=== PATIENT | female | born 2000 | race Caucasian/White ===

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

== ENCOUNTER 2018-01-10 12:11 | Outpatient (CLI) | payer OTHER ==
[2018-01-10 12:40] LABS: BILIRUBIN,URINE NEGATIVE (NEGATIVE); GLUCOSE, URINE (UA) NEGATIVE (NEGATIVE); KETONES,URINE (UA) NEGATIVE (NEGATIVE); LEUKOCYTE ESTERASE, URINE NEGATIVE (NEGATIVE); NITRITE,URINE NEGATIVE (NEGATIVE); OCCULT BLOOD,URINE NEGATIVE (NEGATIVE); PROTEIN,URINE NEGATIVE (NEGATIVE); UROBILINOGEN,URINE 0.2 (NORMAL) E.U./dL (NORMAL)
[2018-01-10 12:41] LABS: CLARITY,URINE CLEAR (CLEAR)
[2018-01-10 13:31] VITALS: BP 100/75
[2018-01-10 13:47] LABS: RUPTURE OF MEMBRANES PLUS NEGATIVE (NEGATIVE)
== END 2018-01-10 14:20 | disposition home or self-care (01) ==
LOC: WFO 12:11 → FBP 12:14 → WFO 14:20
PROVIDERS: ATTEND Obstetrics & Gynecology
DX: Z34.03 Encounter for supervision of normal first pregnancy, third trimester (principal)
CPT/HCPCS: 81001; 81003; 84112; 87086; 87797; 99213

== ENCOUNTER 2018-02-04 14:46 | Outpatient (CLI) | payer OTHER, MEDICAID ==
[2018-02-04 15:30] VITALS: BP 129/72
== END 2018-02-04 16:15 | disposition home or self-care (01) ==
LOC: WFO 14:46 → FBP 14:47 → WFO 16:15
PROVIDERS: ATTEND Obstetrics & Gynecology
DX: O36.8130 Decreased fetal movements, third trimester, not applicable or unspecified (principal); Z3A.38 38 weeks gestation of pregnancy
CPT/HCPCS: 99213

== ENCOUNTER 2018-02-08 12:32 | Emergency (ER) | payer OTHER, MEDICAID ==
--- NOTE | 2018-02-08 12:51 | ED Physician Documentation ---
History of Present Illness - Stated complaint Stated Complaint: BACK PX/VOMITING - History obtained from History obtained from: Patient - History of Present Illness Timing: Today Pain level max: 8 Pain level now: 3 Improved by: nothing Worsened by: nothing - Additonal information Additional information: Patient is a 39 week , , presents with low back pain, pelvic and abdominal cramping. States no leakage of fluid. Review of Systems Ten Systems: 10 systems reviewed and negative Constitutional: denies: Fever, Chills Ears: denies: Ear pain Nose: denies: Rhinorrhea / runny nose, Congestion Throat: denies: Sore throat Cardiac: denies: Chest pain / pressure Respiratory: denies: Cough GI: reports: Nausea, Vomiting. denies: Diarrhea : denies: Dysuria, Frequency, Hesitancy Skin: denies: Rash Musculoskeletal: denies: Neck pain, Back pain Neurologic: denies: Headache PD PAST MEDICAL HISTORY - Past Medical History Past Medical History: No - Past Surgical History Past Surgical History: Yes General: Appendectomy HEENT: Tonsil/Adenoidectomy - Present Medications Home Medications: Ambulatory Orders Medication Instructions Recorded Confirmed No Known Home Medications [No 07/11/17 07/11/17 Known Home Medications] - Allergies Allergies/Adverse Reactions: Allergies Allergy/AdvReac Type Severity Reaction Status Date / Time No Known Drug Allergies Allergy Verified 07/11/17 21:30 - Social History Does the pt smoke?: No Smoking Status: Never smoker Does the pt drink ETOH?: No Does the pt have substance abuse?: No - Immunizations Immunizations are current?: Yes - POLST Patient has POLST: No PD ED PE NORMAL - Vitals Vital signs reviewed: Yes - General General: Alert and oriented X 3, No acute distress - HEENT HEENT: Moist mucous membranes - Neck Neck: Supple, no meningeal sign - Cardiac Cardiac: RRR - Respiratory Respiratory: No respiratory distress, Clear bilaterally - Abdomen Abdomen: Soft, Non tender, Non distended - Derm Derm: Warm and dry - Extremities Extremities: Other (1+ B LE edema) - Neuro Neuro: Alert and oriented X 3 - Psych Psych: Normal mood, Normal affect Results - Vitals Vitals: Vital Signs - 24 hr 02/08/18 12:46 Temperature 36.8 C Heart Rate 94 Respiratory 18 Rate Blood Pressure 138/75 H O2 Saturation 99 Oxygen O2 Source Room air PD MEDICAL DECISION MAKING - ED course Complexity details: considered differential, d/w patient, d/w it architecture consultant (1250 - D/w Dr. Wong (OB) who accepts her directly to OB. ) ED course: Concern for active labor. Contacted OB on-call Dr. Wong who accepts immediately to the OB service. She transported to OB by ANSHUL Joseph for further care. This document was made in part using voice recognition software. While efforts are made to proofread this document, sound alike and grammatical errors may occur. Departure - Departure Disposition: 01 Home, Self Care Clinical Impression: Abdominal pain affecting , Active labor at term Condition: Stable Discharge Date/Time: 02/08/18 13:00
[2018-02-08 12:52] VITALS: BP 138/75
== END 2018-02-08 13:00 | disposition home or self-care (01) ==
LOC: ED 12:32
DX: O26.893 Other specified pregnancy related conditions, third trimester (principal); R10.9 Unspecified abdominal pain; M54.5 Low back pain; Z3A.39 39 weeks gestation of pregnancy
CPT/HCPCS: 99282; 99283

== ENCOUNTER 2018-02-08 12:55 | Inpatient (IN) | payer OTHER, MEDICAID ==
[2018-02-08] MEDS ORDERED: miSOPROStol 200 MCG TABLET ONE (14:04)
[2018-02-08] MEDS ORDERED: LIDOCAINE 1% 50 ML MDV ONE (14:04)
[2018-02-08] MEDS ORDERED: TERBUTALINE 1 MG/ML VIAL SUBQ ONE (14:04)
[2018-02-08] MEDS ORDERED: MINERAL OIL LIGHT 10 ML MC ONE (14:04)
[2018-02-08] MEDS ORDERED: SODIUM CHLORIDE FLUSH 0.9% 10 ML SYRINGE ONE (14:05)
[2018-02-08] MEDS ORDERED: OXYTOCIN 10 UNIT/ML VIAL ONE (14:05)
[2018-02-08] MEDS ORDERED: OXYTOCIN/SODIUM CHLORIDE 500 ML IV ONE (14:05)
[2018-02-08] MEDS ORDERED: LACTATED RINGERS 1,000 ML IV ONE (14:05)
[2018-02-08] MEDS ORDERED: fentaNYL 100 MCG/2 ML VIAL ONE (14:32)
[2018-02-08] MEDS ORDERED: fentaNYL 250 MCG/5 ML VIAL ONE ×2 (14:45→15:22)
[2018-02-08] MEDS ORDERED: SODIUM CHLORIDE 0.9% 250 ML IV ONE ×3 (14:45→14:46)
[2018-02-08] MEDS ORDERED: BUPIVACAINE 0.75% MPF 30 ML VIAL ONE ×2 (14:45→15:22)
[2018-02-08] MEDS ORDERED: fentaNYL 100 MCG/2 ML VIAL IVP PRN (14:48)
[2018-02-08] MEDS ORDERED: SODIUM CHLORIDE FLUSH 0.9% 10 ML SYRINGE IVP PRN (14:48)
[2018-02-08] MEDS ORDERED: LACTATED RINGERS 1,000 ML IV SCH ×2 (15:00→22:00)
[2018-02-08 15:05] LABS: BASOPHILS # (AUTO) 0.1 10^3/uL (0.0-0.1); BASOPHILS % (AUTO) 0.2 %; HGB - HEMOGLOBIN 10.2 g/dL (12.0-16.0); LYMPHOCYTES # (AUTO) 1.9 10^3/uL (1.5-3.5); LYMPHOCYTES % (AUTO) 7.2 %; MEAN CORPUSCULAR HEMOGLOBIN 25.5 pg (27.0-31.0); MEAN CORPUSCULAR HGB CONC 32.3 g/dL (32.0-36.0); MEAN CORPUSCULAR VOLUME 78.8 fL (81.0-99.0); MONOCYTES # (AUTO) 1.1 10^3/uL (0.0-1.0); MONOCYTES % (AUTO) 4.3 %; NEUTROPHILS # (AUTO) 23.3 10^3/uL (1.5-6.6); NEUTROPHILS % (AUTO) 88.3 %; PLT - PLATELET COUNT 269 10^3/uL (130-450); RED CELL DISTRIBUTION WIDTH 15.9 % (12.0-15.0); WHITE BLOOD COUNT 26.4 x10^3/uL (4.8-10.8)
--- NOTE | 2018-02-08 15:42 | HISTORY & PHYSICAL EXAMINATION ---
DATE OF SERVICE: 02/08/2018 Physician: Fuad Wong MD PATIENT IDENTIFICATION: The patient is a 17-year-old, G1, P0, female whose last menstrual period was 03 May by patient history. She has an EDC of January,. This was calculated utilizing last menstrual period. Her gestational age is 38.4 weeks. CHIEF COMPLAINT: Contraction. HISTORY OF PRESENT ILLNESS: The patient states she developed contractions roughly on Tuesday. She presented to labor and delivery at that time and was noted to have 2 cm, 50% effaced. She was not kept at that time. She presented again on Tuesday for contractions at which time she was felt to be 2-3 cm and 50% effaced. Tuesday she was again checked, 2-3, 50%, and Tuesday once again 3 cm, 50% effaced. This afternoon the contractions become markedly more painful and she was brought to our labor and delivery unit by her stepfather. At this point, she was noted to be 5 cm, 100% effaced and 0 station, vertex presentation, intact. For this reason, she has been kept here for labor and delivery. Records have been obtained from [facility]. Her OB care started at roughly 9 weeks EGA. She has had multiple visits throughout her entire care. Her course has been complicated with a mastitis which was treated with antibiotics. She also had some contractions and was seen here earlier in her . The patient's labs show her to be GC chlamydia negative. Her blood type is noted to be A positive. Her HIV is nonreactive. Hepatitis B is negative, as well as the remainder of her hepatitis panel. She is rubella positive. Her GBS was noted to be negative. One-hour glucose tolerance test was 118. PAST MEDICAL HISTORY: She has a history of having chlamydial infection in the past. The patient denies a hypertensive, diabetic or cardiac disease. PAST SURGICAL HISTORY: Positive for an appendectomy at a younger age. CURRENT MEDICATIONS: vitamins. She has had a course of Keflex during her for mastitis. She had a single episode of nifedipine. HABITS: The patient denies use of alcohol, tobacco or street addictive drugs. ALLERGIES: NONE KNOWN. SOCIAL HISTORY: The patient is nonmarried. She is the dependent daughter of an active duty [place] person. She has a high school education. FAMILY HISTORY: Positive for a father who has had a myocardial infarction. PHYSICAL EXAMINATION GENERAL: The patient is a well-developed, well-nourished white female. She is in moderate to severe amount of distress initially. HEENT: Pupils equal, round. Extraocular muscles are intact. HEART: Regular rate and rhythm without murmurs. LUNGS: Lung martines are clear without rales or wheezes. BACK: No spinal or CVA tenderness. UTERUS: Gravid, nontender. CERVIX: Her cervical examination shows to be 5 cm, 100% effaced, 0 station, vertex. EXTREMITIES: DTRs are noted to be negative. There is no evidence of clonus or calf tenderness. IMPRESSION 1. A 17-year-old primigravida who is 38 and 4 weeks. 2. Active labor. 3. A patient of [facility] with adequate obstetrical care. PLAN: We will admit the patient, administer epidural and work toward delivery. These goals have been explained to the patient. At this particular point she plans to stay here. TD: 02/08/2018 15:41
[2018-02-08 16:01] LABS: DIFFERENTIAL COMMENT MANUAL=AUTO DIFF; PLATELET ESTIMATE, MANUAL NORMAL (130-450,000) (NORMAL); PLATELET MORPHOLOGY NORMAL APPEARANCE (NORMAL)
[2018-02-08] MEDS: OXYTOCIN/SODIUM CHLORIDE 500 ML IV SCH ×2 (16:34→21:13)
--- NOTE | 2018-02-08 16:36 | PROVIDER PROGRESS NOTE ---
Labor Progress Note - Uterine Monitoring Uterine Monitoring Mode: positive: External toco Contraction Frequency (min/apart): 5min Contraction Intensity: positive: Mild to moderate Uterine Resting Tone: positive: Soft - Monitoring Monitor Mode: positive: External ultrasound Heart Rate Baseline: 137 Heart Rate Variability: positive: Moderate (6-25 bmp) Accelerations: positive: Present, 15x15 Decelerations: positive: None Strip Review: positive: Category I - Vaginal Exam Dilation (in cm): 6 Effacement (%): 100% Station: -3, -1 Cervical Position: Midposition - Labor Progress Note Labor Progress Note/Additional Text: Pt is very nervous. has not had any rest past 3 days. Contractions mild will start pitocin.
[2018-02-08] MEDS ORDERED: SODIUM CHLORIDE FLUSH 0.9% 10 ML SYRINGE IVP SCH (17:00)
--- NOTE | 2018-02-08 20:38 | PROVIDER PROGRESS NOTE ---
Labor Progress Note - Uterine Monitoring Uterine Monitoring Mode: positive: External toco Contraction Frequency (min/apart): 4 Contraction Intensity: positive: Moderate to strong Uterine Resting Tone: positive: Soft - Monitoring Monitor Mode: positive: External ultrasound Heart Rate Baseline: 130 Heart Rate Variability: positive: Moderate (6-25 bmp) Accelerations: positive: Present, 10x10 (=/32 wks) Decelerations: positive: None - Vaginal Exam Dilation (in cm): 10 Effacement (%): 100 Station: 2, 3 - Labor Progress Note Labor Progress Note/Additional Text: Progressing. Pt fatigued due to lack of sleep. pushing well. pit to 3 units
[2018-02-08] MEDS ORDERED: HYDROCORTISONE/PRAMOXINE 10 GM PR PRN (21:41)
[2018-02-08] MEDS ORDERED: HYDROCORTISONE 1% CREAM 28 GM TUBE PR PRN (21:41)
[2018-02-08] MEDS ORDERED: oxyCODONE 5 MG TABLET PO PRN (21:41)
[2018-02-08] MEDS ORDERED: diphenhydrAMINE 25 MG CAPSULE PO PRN (21:41)
[2018-02-08] MEDS ORDERED: WITCH HAZEL/GLYCERIN 1 EACH MED..PAD TOP PRN (21:41)
[2018-02-08] MEDS ORDERED: ONDANSETRON 4 MG/2 ML VIAL IVP PRN (21:41)
[2018-02-08] MEDS ORDERED: OXYTOCIN/SODIUM CHLORIDE 250 ML IV ONE (21:41)
--- NOTE | 2018-02-08 21:47 | DELIVERY NOTE ---
Delivery Note - Labor Labor: positive: Spontaneous (pt has had contractions since tuesday with several visits to L&D), Augmented by ARM, Augmented by oxytocin - Infant Delivery Method Infant Delivery Method: positive: Spontaneous vaginal delivery - Presentation Presentation: positive: Vertex, DIEGO - right occiput anterior - Nuchal Cord Nuchal Cord: positive: None - Anesthetic Anesthetic Type: Anesthetic: positive: Lidocaine - 1% plain Volume: positive: Other (10 ml) - Amniotic Fluid Description Amniotic Fluid Description: positive: Clear - Episiotomy Type Episiotomy Type: positive: None - Laceration Laceration: positive: 1st degree, Perineal - Suture Suture Type: positive: Vicryl Suture Size: positive: 3-0 - Delivery Outcome Delivery Outcome: positive: Livebirth (male at 2103 9lb 3.5 oz, Apgars 8/9) - Marcellus: positive: Placed in direct skin contact with mother, Bulb syringe, Stimulated, Warmed sex: positive: Male - Cord Cord: positive: 3 vessels - Placenta Placenta: positive: Intact (placenta at 2113.), Spontaneous
[2018-02-08] MEDS: IBUPROFEN 800 MG TABLET PO SCH (22:33)
[2018-02-09] MEDS: OXYTOCIN/SODIUM CHLORIDE 500 ML IV SCH (04:25)
[2018-02-09 05:55] LABS: BASOPHILS # (AUTO) 0.1 10^3/uL (0.0-0.1); BASOPHILS % (AUTO) 0.3 %; HGB - HEMOGLOBIN 8.5 g/dL (12.0-16.0); LYMPHOCYTES # (AUTO) 2.6 10^3/uL (1.5-3.5); LYMPHOCYTES % (AUTO) 10.7 %; MEAN CORPUSCULAR HEMOGLOBIN 24.7 pg (27.0-31.0); MEAN CORPUSCULAR VOLUME 79.9 fL (81.0-99.0); MEAN PLATELET VOLUME 8.3 fL (7.9-10.8); MONOCYTES # (AUTO) 2.2 10^3/uL (0.0-1.0); MONOCYTES % (AUTO) 8.9 %; NEUTROPHILS # (AUTO) 19.8 10^3/uL (1.5-6.6); NEUTROPHILS % (AUTO) 80.1 %; PLT - PLATELET COUNT 271 10^3/uL (130-450); RED BLOOD COUNT 3.43 10^6/uL (4.20-5.40); WHITE BLOOD COUNT 24.7 x10^3/uL (4.8-10.8)
[2018-02-09] MEDS: IBUPROFEN 800 MG TABLET PO SCH ×3 (06:17→18:59)
[2018-02-09 06:28] LABS: PLATELET ESTIMATE, MANUAL NORMAL (130-450,000) (NORMAL); PLATELET MORPHOLOGY NORMAL APPEARANCE (NORMAL)
--- NOTE | 2018-02-09 11:39 | ANESTHESIA POST OP EVALUATION ---
Anesthesia Post Eval - Post Anesthesia Eval CV Function Including HR & BP: positive: Stable (Patient received labor epidural yesterday, states labor pain adequately controlled. Overall was satisfied with our care. I told her some mild back discomfort is common and may persist for a couple weeks. I told her to call if she develops a headache as we can treat it.) Pain Control: positive: Adequate Nausea & Vomiting: positive: Negative Mental Status: positive: Appropriate Anesthesia Complications: positive: None
[2018-02-09] MEDS: DOCUSATE SODIUM 100 MG CAPSULE PO SCH ×2 (11:56→21:18)
[2018-02-09] MEDS: ACETAMINOPHEN 325 MG TABLET PO SCH ×2 (13:35→21:00)
[2018-02-10] MEDS: IBUPROFEN 800 MG TABLET PO SCH ×2 (00:53→06:44)
--- NOTE | 2018-02-10 08:18 | PROVIDER PROGRESS NOTE ---
Subjective - Prog Note Date Prog Note Date: 02/09/18 Prog Note Time: 08:45 - Subjective Pt reports feeling: Improved (Pt is doing well. breast feeding. locia clearing. Pain 10/12) Objective - Vital Signs/Intake & Output Reviewed Vital Signs: Yes Vital Signs: Vital Signs x48h Temp Pulse Resp BP BP Pulse Ox 02/10/18 08:00 36.6 C 77 16 116/74 100 02/10/18 04:58 36.8 C 74 20 116/64 99 Intake & Output: Intake & Output 02/07/18 02/08/18 02/09/18 02/10/18 23:59 23:59 23:59 23:59 Intake Total 1614.167 Output Total 700 300 Balance 914.167 -300 - Objective General Appearance: positive: No acute distress, Alert Respiratory: positive: Chest non-tender Cardiovascular: positive: Regular rate & rhythm Abdomen: positive: Non-tender Extremities: negative: Calf tenderness, Myrna's sign/cords - Lab Results Fish Bones: 02/09/18 05:49 Assessment/Plan - Problem List (1) Anemia Impression: Pt is post locia resolving. Qualifiers: Anemia type: other cause Other causes of anemia: acute posthemorrhagic Qualified Code(s): D62 - Acute posthemorrhagic anemia
--- NOTE | 2018-02-10 08:23 | PROVIDER PROGRESS NOTE ---
Subjective - Prog Note Date Prog Note Date: 02/10/18 Prog Note Time: 08:21 - Subjective Pt reports feeling: Improved (Pt is teary eyed. spouce is at work. Misses him. Pain 0/10. locia improving. sandhya tachy cardia or light headedness.) Objective - Vital Signs/Intake & Output Reviewed Vital Signs: Yes Vital Signs: Vital Signs x48h Temp Pulse Resp BP BP Pulse Ox 02/10/18 08:00 36.6 C 77 16 116/74 100 02/10/18 04:58 36.8 C 74 20 116/64 99 Intake & Output: Intake & Output 02/07/18 02/08/18 02/09/18 02/10/18 23:59 23:59 23:59 23:59 Intake Total 1614.167 Output Total 700 300 Balance 914.167 -300 - Objective General Appearance: positive: No acute distress (Flat affect) Respiratory: positive: Chest non-tender, No respiratory distress Cardiovascular: positive: Regular rate & rhythm, No murmur, No gallop Abdomen: positive: Non-tender, Mass (U-2) Extremities: negative: Calf tenderness, Myrna's sign/cords - Lab Results Fish Bones: 02/09/18 05:49 Assessment/Plan - Problem List (1) Anemia Impression: Anemia will place on Iron and stool softener Qualifiers: Anemia type: other cause Other causes of anemia: acute posthemorrhagic Qualified Code(s): D62 - Acute posthemorrhagic anemia (2) (spontaneous vaginal delivery) Impression: Pt si doing well Discussed breast feeding, masitis Contraception. recommended Mirena Discharge medication Motrin 800 mg Iron 325 mg Colace 100 mg RTC 2 and 6 weeks
--- NOTE | 2018-02-10 08:53 | PROVIDER PROGRESS NOTE ---
Subjective - Prog Note Date Prog Note Date: 02/10/18 Prog Note Time: 08:50 - Subjective Pt reports feeling: Improved Objective - Vital Signs/Intake & Output Vital Signs: Vital Signs x48h Temp Pulse Resp BP BP Pulse Ox 02/10/18 08:00 36.6 C 77 16 116/74 100 02/10/18 04:58 36.8 C 74 20 116/64 99 Intake & Output: Intake & Output 02/07/18 02/08/18 02/09/18 02/10/18 23:59 23:59 23:59 23:59 Intake Total 1614.167 Output Total 700 300 Balance 914.167 -300 - Lab Results Fish Bones: 02/09/18 05:49 Assessment/Plan - Problem List (1) Anemia Qualifiers: Anemia type: other cause Other causes of anemia: acute posthemorrhagic Qualified Code(s): D62 - Acute posthemorrhagic anemia
--- NOTE | 2018-02-10 09:11 | Discharge Plan ---
Discharge Plan Disposition: Home, Self Care Diet: Regular Shower Restrictions: No Driving Restrictions: No No Smoking: If you smoke, Please STOP! Call for help. Follow-up with: Fuad Wong MD [Provider Admit Priv/Credential] -
[2018-02-10] MEDS: DOCUSATE SODIUM 100 MG CAPSULE PO SCH (09:17)
[2018-02-10 16:06] VITALS: BP 118/71
--- NOTE | 2018-02-10 16:13 | Labor Flowsheet ---
Labor Flowsheet Datetime Report Generated by CPN: 02/10/2018 16:13 Datetime: 02/10/2018 08:16 VITAL SIGNS NBP Sys/Kala/Mean (mmHg): 118 : 71 : 82 Pulse: 89 Datetime: 02/10/2018 08:14 SpO2 (%): 100 Datetime: 02/09/2018 16:02 Temperature (F): 97.9 Temperature (C): 36.6 Temperature (C): 36.6 Datetime: 02/08/2018 21:15 Stage of : Recovery Datetime: 02/08/2018 21:00 UTERINE ACTIVITY Monitor Mode: External Frequency (min): 2-4 Quality: Strong Duration (sec): 60-80 Resting Tone (Palpate): Relaxed ASSESSMENT A Monitor Mode: External US FHR Baseline Rate : 130 Variability: Moderate 6-25 bpm Accelerations: 15X15 Decelerations: None Datetime: 02/08/2018 20:59 Comments: room readied for delivery Dr Giem at bedside Datetime: 02/08/2018 20:54 LaborFlag: Labor Datetime: 02/08/2018 20:45 PATIENT CARE Oxygen Method: Room Air Datetime: 02/08/2018 20:40 Temperature Route: Oral PAIN Pain Scale: 4 Pain Presence: Intermittent Pain Type: Contraction Pain Location: Abdomen; Perineum Pain Goal: 5 Datetime: 02/08/2018 20:25 Communication Comments: Dr Giem at bedside, up[dated on pt contraction pattern and pa;pation. Orde rs rec'd to increase Pitocin to 3 milliunits/min Datetime: 02/08/2018 19:45 STAGE 2 Pushing: Urge to Push Pushing Position: Pushing with Contractions Datetime: 02/08/2018 19:30 Category: Category I Datetime: 02/08/2018 19:24 I/O Interventions: Lang Discontinued Datetime: 02/08/2018 19:15 VAGINAL EXAM Dilatation (cm): 10.0 Effacement (%): 100 Station: 2 Exam by: T Rk RNS Datetime: 02/08/2018 18:39 Respirations: 16 Patient Care Comments: 350 mls of urine Datetime: 02/08/2018 17:25 Membranes Ruptured Date/Time: 02/08/2018 15:15 Datetime: 02/08/2018 17:14 Vaginal Bleeding: Normal Show Cervix, Consistency: Soft Cervix, Position: Anterior Vaginal Exam Comments: feeling pressure COMMUNICATION Communication: Call/Page Placed to Provider Provider Notified (Name): Dr Giem Datetime: 02/08/2018 16:34 MEDICATIONS Pitocin (milliunits): Started @ 1 Strip Reviewed by: Dr Giem Datetime: 02/08/2018 15:45 FHR Baseline Changes: No Baseline Change Datetime: 02/08/2018 15:17 Patient Position/Activity: Left Lateral
== END 2018-02-10 10:40 | disposition home or self-care (01) | DRG 775 ==
LOC: WFO 12:55 → FBP 12:56 → WFO 14:47 → FBP 14:48
PROVIDERS: ADMIT Obstetrics & Gynecology; ATTEND Obstetrics & Gynecology
PROC: 10E0XZZ Delivery of Products of Conception, External Approach (ICD-10-PCS; principal; 2018-02-08)
PROC: 0HQ9XZZ Repair Perineum Skin, External Approach (ICD-10-PCS; 2018-02-08)
PROC: 10907ZC Drainage of Amniotic Fluid, Therapeutic from Products of Conception, Via Natural or Artificial Opening (ICD-10-PCS; 2018-02-08)
DX: O99.02 Anemia complicating childbirth (principal); D62 Acute posthemorrhagic anemia; O70.0 First degree perineal laceration during delivery; Z86.19 Personal history of other infectious and parasitic diseases; Z82.49 Family history of ischemic heart disease and other diseases of the circulatory system; Z3A.38 38 weeks gestation of pregnancy; Z37.0 Single live birth
CPT/HCPCS: 36415; 85025; 96374; 99213; 99282; 99283

== ENCOUNTER 2019-02-24 19:57 | Emergency (ER) | payer OTHER, MEDICAID ==
--- NOTE | 2019-02-24 20:02 | ED Physician Documentation ---
PD HPI SKIN - Stated complaint Stated Complaint: BUG BITE - History obtained from History obtained from: Patient - History of Present Illness Timing - onset: How many days ago (2) Timing - details: Gradual onset, Constant Pain level now: 1 Location: RLE Quality / character: Burning, Discolored, Raised, Swelling Associated symptoms: No: Fever Contributing factors: Unknown Similar symptoms before: Has not had sx before Recently seen: Not recently seen - Additional information Additional information: 2 days ago, noticed small red raised "bump" to right inner thigh; the surrounding redness has gradually spread over past 2 days Review of Systems Constitutional: denies: Fever Skin: reports: Rash PD PAST MEDICAL HISTORY - Past Medical History Past Medical History: No - Past Surgical History Past Surgical History: Yes General: Appendectomy HEENT: Tonsil/Adenoidectomy - Present Medications Home Medications: Ambulatory Orders Medication Instructions Recorded Confirmed Cephalexin [Keflex] 500 mg PO Q6H #28 capsule 02/24/19 Sulfamethox/Trimeth 800/160 1 each PO BID #14 tablet 02/24/19 [Bactrim Ds 800/160] - Allergies Allergies/Adverse Reactions: Allergies Allergy/AdvReac Type Severity Reaction Status Date / Time adhesive AdvReac Rash Verified 02/24/19 20:06 - Living Situation Living Arrangement: reports: At home - Social History Does the pt smoke?: No Smoking Status: Never smoker Does the pt drink ETOH?: No Does the pt have substance abuse?: No - Immunizations Immunizations are current?: Yes - POLST Patient has POLST: No PD ED PE NORMAL - Vitals Vital signs reviewed: Yes - General General: Alert and oriented X 3, No acute distress, Well developed/nourished - Extremities Extremities: No edema PD ED PE EXPANDED - Extremities TANIA LE visual: 1 - rash (confluent flat erythema with central 1cm diameter raised lesion. there is no fluctuance, and only mild TTP) Results - Vitals Vitals: Vital Signs - 24 hr 02/24/19 20:02 Temperature 36.5 C Heart Rate 78 Respiratory 18 Rate Blood Pressure 141/78 H O2 Saturation 100 Oxygen O2 Source Room air PD MEDICAL DECISION MAKING - ED course Complexity details: considered differential, d/w patient Departure - Departure Disposition: 01 Home, Self Care Clinical Impression: Cellulitis Qualifiers: Site of cellulitis: extremity Site of cellulitis of extremity: lower extremity Laterality: right Qualified Code(s): L03.115 - Cellulitis of right lower limb Condition: Good Instructions: ED Infec Skin Cellulitis, ED Hypertension Poss Follow-Up: BETH Cage [Provider Group] (3-4 days if not improving) Prescriptions: Cephalexin [Keflex] 500 mg PO Q6H #28 capsule Sulfamethox/Trimeth 800/160 [Bactrim Ds 800/160] 1 each PO BID #14 tablet Discharge Date/Time: 02/24/19 20:23
[2019-02-24 20:06] VITALS: BP 141/78
[2019-02-24] MEDS ORDERED: cephALEXin 250 MG CAPSULE PO STA (20:15)
[2019-02-24] MEDS ORDERED: SULFAMETH/TRIMETH DS 800/160 MG TABLET PO STA (20:15)
== END 2019-02-24 20:23 | disposition home or self-care (01) ==
LOC: ED 19:57
DX: L03.115 Cellulitis of right lower limb (principal)
CPT/HCPCS: 99283; A9270